=== PATIENT | female | born 1980 | race Hispanic/Latino ===

== ENCOUNTER 2017-11-25 12:16 | Emergency (ER) | payer OTHER ==
[2017-11-25 12:32] VITALS: TEMP 98.4
[2017-11-25] MEDS ORDERED: predniSONE 20 MG TAB PO ONE (14:02)
--- NOTE | 2017-11-25 14:06 | ED.PDOC ---
History of Present Illness - General Chief Complaint: Allergic Reaction Stated Complaint: allergic reaction Time Seen by Provider: 11/25/17 12:32 Source: patient, RN notes reviewed, Vital Signs reviewed, family Exam Limitations: no limitations - History of Present Illness Initial Comments: Developed facial rash & mild itching hours after being given an amoxicillin because of viral like symptoms. Was seen in another ED yesterdya & given DepoMedrol, Benadryl & Zyrtec. Only minimal improvement. Timing/Duration: other - 36 hours Severity: moderate Improving Factors: nothing Worsening Factors: nothing Associated Symptoms: malaise, rash Allergies/Adverse Reactions: Allergies Amoxicillin Allergy (Verified 11/25/17 12:32) Home Medications: Ambulatory Orders predniSONE [Prednisone] 60 mg PO DAILY #9 tab 11/25/17 Review of Systems - Review of Systems Constitutional: States: see HPI EENTM: States: see HPI Respiratory: States: no symptoms reported Cardiology: States: no symptoms reported Gastrointestinal/Abdominal: States: no symptoms reported Musculoskeletal: States: no symptoms reported Skin: States: see HPI Neurological: States: no symptoms reported Past Medical History (General) - Patient Medical History Hx Asthma: No Hx Hypertension: Yes Surgical History: cholecystectomy, other - Vaccination History Hx Influenza Vaccination: Yes - Social History Hx Tobacco Use: No Hx Alcohol Use: No - Triage Comment ED Triage Comment: LMP- now Family Medical History - Family History Mother Family History: Unknown Physical Exam - Physical Exam General Appearance: Alert, Comfortable, No apparent distress Ears, Nose, Throat: hearing grossly normal, normal ENT inspection, normal pharynx Neck: full range of motion, supple, normal inspection Respiratory: lungs clear, normal breath sounds, no respiratory distress, no accessory muscle use Cardiovascular/Chest: regular rate, rhythm, no edema Extremity: normal range of motion, normal inspection Neurologic: alert, normal mood/affect, oriented x 3 Skin Exam: warm/dry, rash - assymetric facial & upper lip swelling, erythematous , a few areas of urticaria Progress - Progress Progress: 11/25/17 14:03 unchanged. 11/25/17 14:06 140/83 11/25/17 19:29 She takes lisinopril. Mixed picture of angioedema & perhaps allergic reaction to amoxicillin. After discussing options she elects to stop her lisinopril & start prednisone. She will f/u with her PCP in 2 days. Departure - Departure Clinical Impression: Urticaria Angioedema Qualifiers: Encounter type: initial encounter Qualified Code(s): T78.3XXA - Angioneurotic edema, initial encounter Disposition: Discharge to Home or Self Care Condition: Good Departure Forms: ED Discharge - Pt. Copy, Patient Portal Self Enrollment Instructions: DI for Allergic Rhinitis Prescriptions: predniSONE [Prednisone] 60 mg PO DAILY #9 tab Home Medications: Ambulatory Orders predniSONE [Prednisone] 60 mg PO DAILY #9 tab 11/25/17 Additional Instructions: follow up with your doctor on Monday
[2017-11-25 14:29] VITALS: BP 136/87; O2SAT 99
== END 2017-11-25 14:29 | disposition home or self-care (01) ==
LOC: ER 12:16
DX: T78.3XXA Angioneurotic edema, initial encounter (principal); I10 Essential (primary) hypertension